=== PATIENT | female | born 1965 | race Caucasian/White ===

== ENCOUNTER 2021-03-21 15:52 | Inpatient (IN) | payer OTHER ==
[2021-03-21] MEDS ORDERED: SODIUM CHLORIDE 0.9% 1,000 ML IV STA (16:21)
[2021-03-21] MEDS ORDERED: LORazepam 2 MG/ML INJ IV PRN (16:25)
[2021-03-21] MEDS ORDERED: THIAMINE 100 MG/ML 2 ML VIAL IM STA (16:25)
--- NOTE | 2021-03-21 16:28 | ED ---
Alcohol HPI - General Chief Complaint: Alcohol Stated Complaint: ETOH Time Seen by Provider: 03/21/21 16:13 Source: patient Mode of arrival: ambulatory Limitations: no limitations - History of Present Illness Initial Comments: 55-year-old female presents to the emergency departments chief complaint of alcohol intoxication. Patient reports recently she moved to the area from [place]. History of alcohol abuse and alcohol withdrawal seizures. States she typically drinks 1.5 pints of alcohol daily. States her most recent drink was several hours ago and it was vodka. States that she is planning to go to [facility] but they would not allow her until she is sober and stops going through withdrawal. Patient states that she needs help with her withdrawals before she can go to rehab. She denies any homicidal, suicidal thoughts or ideations. No other complaints. - Related Data Allergies Allergy/AdvReac Type Severity Reaction Status Date / Time Fish Containing Products Allergy Unknown Verified 03/21/21 16:10 Review of Systems ROS Statement: Those systems with pertinent positive or pertinent negative responses have been documented in the HPI. ROS Other: All systems not noted in ROS Statement are negative. Past Medical History Past Medical History: Hypertension Additional Past Medical History / Comment(s): scoliosis History of Any Multi-Drug Resistant Organisms: None Reported Past Surgical History: No Surgical Hx Reported Past Psychological History: Anxiety, Depression, PTSD Smoking Status: Former smoker, Never smoker Past Alcohol Use History: Abuse, Daily, Heavy Past Drug Use History: Marijuana General Exam Limitations: no limitations General appearance: alert, in no apparent distress, appears intoxicated, anxious Head exam: Present: atraumatic, normocephalic, normal inspection Eye exam: Present: normal appearance, PERRL, EOMI Pupils: Present: normal accommodation ENT exam: Present: normal exam, normal oropharynx, mucous membranes moist Neck exam: Present: normal inspection, full ROM. Absent: tenderness, lymphadenopathy Respiratory exam: Present: normal lung sounds bilaterally. Absent: respiratory distress Cardiovascular Exam: Present: regular rate, normal rhythm, normal heart sounds. Absent: systolic murmur Extremities exam: Present: normal inspection, full ROM, normal capillary refill. Absent: tenderness, pedal edema Back exam: Present: normal inspection, full ROM. Absent: tenderness Neurological exam: Present: alert, oriented X3 Psychiatric exam: Present: normal affect, normal mood, anxious Skin exam: Present: warm, dry, intact, normal color Course Vital Signs 03/21/21 03/21/21 16:06 17:01 Temperature 98.6 F Pulse Rate 107 H 90 Respiratory 16 16 Rate Blood Pressure 137/85 124/76 O2 Sat by Pulse 94 L 92 L Oximetry Medical Decision Making - Medical Decision Making 55-year-old female presents to the emergency departments chief complaint of alcohol intoxication. On physical examination, patient is intoxicated and very emotional when talking. CBC is unremarkable. CMP reveals mild transaminitis. Lipase 1000. Also blood alcohol is 300. Patient will stay for alcohol intoxic ation and pancreatitis. Nothing by mouth. Analgesics. She does have history of withdrawal seizures. shaka hoskins. Given protocol. Case discussed with Cait, and JODI who will admit for Dr. Randolph. Case discussed with Dr. Walker. - Lab Data Result diagrams: 03/21/21 16:31 03/21/21 16:31 Lab Results 03/21/21 03/21/21 Range/Units 16:31 16:31 WBC 4.9 (3.8-10.6) k/uL RBC 3.97 (3.80-5.40) m/uL Hgb 13.3 (11.4-16.0) gm/dL Hct 39.8 (34.0-46.0) % MCV 100.2 H (80.0-100.0) fL MCH 33.4 (25.0-35.0) pg MCHC 33.4 (31.0-37.0) g/dL RDW 12.2 (11.5-15.5) % Plt Count 180 (150-450) k/uL MPV 8.4 Neutrophils % 54 % Lymphocytes % 36 % Monocytes % 6 % Eosinophils % 2 % Basophils % 1 % Neutrophils # 2.6 (1.3-7.7) k/uL Lymphocytes # 1.8 (1.0-4.8) k/uL Monocytes # 0.3 (0-1.0) k/uL Eosinophils # 0.1 (0-0.7) k/uL Basophils # 0.0 (0-0.2) k/uL Sodium 140 (137-145) mmol/L Potassium 4.1 (3.5-5.1) mmol/L Chloride 102 (98-107) mmol/L Carbon Dioxide 20 L (22-30) mmol/L Anion Gap 18 mmol/L BUN 10 (7-17) mg/dL Creatinine 0.66 (0.52-1.04) mg/dL Est GFR (CKD-EPI)AfAm >90 (>60 ml/min/1.73 sqM) Est GFR (CKD-EPI)NonAf >90 (>60 ml/min/1.73 sqM) Glucose 102 H (74-99) mg/dL Calcium 9.3 (8.4-10.2) mg/dL Magnesium 2.0 (1.6-2.3) mg/dL Total Bilirubin 0.5 (0.2-1.3) mg/dL AST 50 H (14-36) U/L ALT 18 (4-34) U/L Alkaline Phosphatase 115 (38-126) U/L Total Protein 7.5 (6.3-8.2) g/dL Albumin 4.7 (3.5-5.0) g/dL Lipase 1018 H (23-300) U/L Serum Alcohol 364 H* mg/dL - EKG Data EKG Comments: Sinus rhythm A chloride 99, WA 136, QRS 82, QTC 459. Disposition Clinical Impression: Alcoholic intoxication, Pancreatitis Disposition: ADMITTED IP TO THIS HOSP Condition: Fair Is patient prescribed a controlled substance at d/c from ED?: No Referrals: Nonstaff,Physician [Primary Care Provider] - 1-2 days Time of Disposition: 17:51
[2021-03-21] MEDS: THIAMINE 100 MG TAB PO SCH (16:57)
[2021-03-21 17:03] LABS: Basophils % (A) 1 %; Eosinophils # (A) 0.1 k/uL (0-0.7); Eosinophils % (A) 2 %; HCT 39.8 % (34.0-46.0); HGB 13.3 gm/dL (11.4-16.0); Lymphocytes # (A) 1.8 k/uL (1.0-4.8); Lymphocytes % (A) 36 %; MCH 33.4 pg (25.0-35.0); MCHC 33.4 g/dL (31.0-37.0); MCV 100.2 fL (80.0-100.0); Mean Platelet Volume 8.4; Monocytes # (A) 0.3 k/uL (0-1.0); Monocytes % (A) 6 %; Neutrophils # (A) 2.6 k/uL (1.3-7.7); Neutrophils % (A) 54 %; Platelet Count 180 k/uL (150-450); RBC 3.97 m/uL (3.80-5.40); RDW 12.2 % (11.5-15.5); WBC 4.9 k/uL (3.8-10.6)
[2021-03-21 17:11] LABS: ALT 18 U/L (4-34); AST 50 U/L (14-36); African American GFR (CKD) >90 (>60 ml/min/1.73 sqM); Albumin 4.7 g/dL (3.5-5.0); Alkaline Phosphatase 115 U/L (38-126); Anion Gap 18 mmol/L; Blood Urea Nitrogen 10 mg/dL (7-17); Calcium 9.3 mg/dL (8.4-10.2); Carbon Dioxide 20 mmol/L (22-30); Chloride 102 mmol/L (98-107); Glucose 102 mg/dL (74-99); Lipase 1018 U/L (23-300); Non-African American GFR(CKD) >90 (>60 ml/min/1.73 sqM); Potassium 4.1 mmol/L (3.5-5.1); Sodium 140 mmol/L (137-145); Total Bilirubin 0.5 mg/dL (0.2-1.3); Total Protein 7.5 g/dL (6.3-8.2)
[2021-03-21] MEDS ORDERED: NALOXONE 0.4 MG/ML 1 ML VIAL IV PRN (17:52)
[2021-03-21] MEDS: SODIUM CHLORIDE 0.9% 1,000 ML IV SCH (18:38)
[2021-03-21] MEDS: LORazepam 2 MG/ML INJ IV PRN (21:25)
[2021-03-22] MEDS: LORazepam 2 MG/ML INJ IV PRN ×4 (07:14→12:36)
[2021-03-22] MEDS: SODIUM CHLORIDE 0.9% 1,000 ML IV SCH (07:18)
[2021-03-22] MEDS: THIAMINE 100 MG TAB PO SCH ×2 (08:19→17:05)
[2021-03-22 08:31] LABS: Alcohol 364 mg/dL
[2021-03-22] MEDS ORDERED: GABAPENTIN 400 MG CAP PO PRN ×2 (10:10)
[2021-03-22] MEDS ORDERED: lamoTRIgine 25 MG TAB PO SCH (10:15)
[2021-03-22] MEDS ORDERED: chlordiazePOXIDE 25 MG CAP PO SCH (11:30)
--- NOTE | 2021-03-22 12:08 | P.HPIM ---
History of Present Illness Patient is a pleasant 55-year-old the female was sent in from a alcohol rehabilitation program for nonevent of alcohol withdrawal. Patient was drinking on for last afternoon wanted to quit alcohol. Patient last drink was yesterday patient drinks about one and half pint of alcohol every single day. Patient is having withdrawals with CA to be a score of 16 and patient received quite a bit of Ativan today. Patient denied any abdominal pain was having some nausea vomiting patient has mildly elevated lipase of thousand because of which patient was related to her pancreatitis although patient doesn't have any symptoms of hepatitis at this time. REVIEW OF SYSTEMS: CONSTITUTIONAL: No fever, no malaise, no fatigue. HEENT: No recent visual problems or hearing problems. Denied any sore throat. CARDIOVASCULAR: No chest pain, orthopnea, PND, no palpitations, no syncope. PULMONARY: No shortness of breath, no cough, no hemoptysis. GASTROINTESTINAL: No diarrhea, no abdominal pain. NEUROLOGICAL: No headaches, no weakness, no numbness. HEMATOLOGICAL: Denies any bleeding or petechiae. GENITOURINARY: Denies any burning micturition, frequency, or urgency. MUSCULOSKELETAL/RHEUMATOLOGICAL: Denies any joint pain, swelling, or any muscle pain. ENDOCRINE: Denies any polyuria or polydipsia. The rest of the 14-point review of systems is negative. PHYSICAL EXAMINATION: GENERAL: The patient is alert and oriented x3, not in any acute distress. Well developed, well nourished. HEENT: Pupils are round and equally reacting to light. EOMI. No scleral icterus. No conjunctival pallor. Normocephalic, atraumatic. No pharyngeal erythema. No thyromegaly. CARDIOVASCULAR: S1 and S2 present. No murmurs, rubs, or gallops. PULMONARY: Chest is clear to auscultation, no wheezing or crackles. ABDOMEN: Soft, nontender, nondistended, normoactive bowel sounds. No palpable organomegaly. MUSCULOSKELETAL: No joint swelling or deformity. EXTREMITIES: No cyanosis, clubbing, or pedal edema. NEUROLOGICAL: Gross neurological examination did not reveal any focal deficits. SKIN: No rashes. Assessment and plan -Alcohol withdrawal: Patient is expected to have worsening withdrawals later today because of which patient the need continued hospitalization and monitoring continue with the Ativan CIWA protocol, thiamine multivitamin supplementation and IV fluids as needed -Elevated lipase no clinical evidence of pancreatitis patient will be started on liquid diet and advance as tolerated -Nausea vomiting secondary to alcoholic gastritis continue with Protonix -Alcohol abuse -Peripheral neuropathy probably secondary to chronic alcoholism continue with gabapentin on as-needed basis -Depression: Patient is on bupropion patient is on 300 mg of bupropion total with concerns of alcohol withdrawal and uses seizures I'll hold off on bupropion at this time it may not be effective anyway considering her chronic alcoholism. DVT prophylaxis: Lovenox Past Medical History Past Medical History: Hypertension Additional Past Medical History / Comment(s): scoliosis History of Any Multi-Drug Resistant Organisms: None Reported Past Surgical History: No Surgical Hx Reported Past Anesthesia/Blood Transfusion Reactions: No Reported Reaction Past Psychological History: Anxiety, Depression, PTSD Smoking Status: Never smoker Past Alcohol Use History: Abuse, Daily, Heavy Past Drug Use History: Marijuana Medications and Allergies Home Medications Medication Instructions Recorded Confirmed Type Baclofen [Lioresal] 10 mg PO BID PRN 03/21/21 03/21/21 History Folic Acid 1 mg PO DAILY 03/21/21 03/21/21 History Gabapentin [Neurontin] 400 mg PO BID@0800,1200 03/21/21 03/21/21 History Gabapentin [Neurontin] 800 mg PO HS 03/21/21 03/21/21 History Naproxen 500 mg PO Q12H PRN 03/21/21 03/21/21 History Omeprazole 20 mg PO W/SUPPER 03/21/21 03/21/21 History Thiamine [Vitamin B-1] 100 mg PO DAILY 03/21/21 03/21/21 History buPROPion HCL [Wellbutrin SR] 150 mg PO Q12H 03/21/21 03/21/21 History lamoTRIgine [LaMICtal] 25 mg PO BID 03/21/21 03/21/21 History traZODone HCL 150 mg PO HS 03/21/21 03/21/21 History Allergies Allergy/AdvReac Type Severity Reaction Status Date / Time Fish Containing Products Allergy Unknown Verified 03/21/21 18:30 Physical Exam Vitals: Vital Signs Temp Pulse Pulse Resp BP BP Pulse Ox 03/22/21 08:00 17 03/22/21 07:48 99.1 F 80 17 158/97 100 03/22/21 00:10 97.7 F 102 H 14 120/77 96 03/22/21 00:01 98 03/21/21 22:00 88 L 03/21/21 21:00 84 16 107/59 96 03/21/21 18:24 84 16 107/60 95 03/21/21 17:01 90 16 124/76 92 L 03/21/21 16:06 98.6 F 107 H 16 137/85 94 L Intake and Output 03/21/21 03/22/21 03/22/21 22:59 06:59 14:59 Intake Total 600 Balance 600 Intake: Intake, IV Titration 600 Amount Sodium Chloride 0.9% 1, 600 000 ml @ 75 mls/hr IV . [id number] PASCUAL Rx#:[id number] Oral 0 Other: # Voids 1 1 Weight 61.235 kg 61.235 kg Results CBC & Chem 7: 03/21/21 16:31 03/21/21 16:31 Labs: Abnormal Lab Results - Last 24 Hours (Table) 03/21/21 03/21/21 Range/Units 16:31 16:31 MCV 100.2 H (80.0-100.0) fL Carbon Dioxide 20 L (22-30) mmol/L Glucose 102 H (74-99) mg/dL AST 50 H (14-36) U/L Lipase 1018 H (23-300) U/L Serum Alcohol 364 H* mg/dL Thrombosis Risk Factor Assmnt - Choose All That Apply Each Factor Represents 1 point: Age 41-60 years Other Risk Factors: No Other congenital or acquired thrombophilia - If yes, enter type in comment: No Thrombosis Risk Factor Assessment Total Risk Factor Score: 1 Thrombosis Risk Factor Assessment Level: Low Risk
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
--- NOTE | 2021-03-22 16:50 | P.DS ---
Providers Date of admission: 03/21/21 18:57 Attending physician: Adrianne Randolph Consults: 03/21/21 17:52 Consult Physician Routine Consulting Provider: Ernesto Acevedo Reason/Comments: alcohol Intoxication, alcohol abuse Do you want consulting provider notified?: Already Contacted Primary care physician: Physician Nonstaff Hospital Course: Patient was accepted by Dr. Hightower to be transferred to [facility] as patient's insurance doesn't cover [facility]. Please refer to HPI for further details patient will be transferred to medical surgical floor, Wellbutrin is being discontinued patient is on 150 twice a day of Wellbutrin testing that patient is having withdrawals concern for decreased seizure threshold this medication is being discontinued at this time. Patient Condition at Discharge: Fair Plan - Discharge Summary Discharge Rx Participant: No New Discharge Prescriptions: Discontinued buPROPion HCL [Wellbutrin SR] 150 mg PO Q12H No Action traZODone HCL 150 mg PO HS Gabapentin [Neurontin] 800 mg PO HS Gabapentin [Neurontin] 400 mg PO BID@0800,1200 Folic Acid 1 mg PO DAILY lamoTRIgine [LaMICtal] 25 mg PO BID Thiamine [Vitamin B-1] 100 mg PO DAILY Omeprazole 20 mg PO W/SUPPER Naproxen 500 mg PO Q12H PRN PRN Reason: Pain Baclofen [Lioresal] 10 mg PO BID PRN PRN Reason: Pain Discharge Medication List Baclofen [Lioresal] 10 mg PO BID PRN 03/21/21 [History] Folic Acid 1 mg PO DAILY 03/21/21 [History] Gabapentin [Neurontin] 400 mg PO BID@0800,1200 03/21/21 [History] Gabapentin [Neurontin] 800 mg PO HS 03/21/21 [History] Naproxen 500 mg PO Q12H PRN 03/21/21 [History] Omeprazole 20 mg PO W/SUPPER 03/21/21 [History] Thiamine [Vitamin B-1] 100 mg PO DAILY 03/21/21 [History] lamoTRIgine [LaMICtal] 25 mg PO BID 03/21/21 [History] traZODone HCL 150 mg PO HS 03/21/21 [History] Follow up Appointment(s)/Referral(s): Nonstaff,Physician [Primary Care Provider] - 1-2 days Discharge Disposition: OTHER INSTITUTION NOT DEFINED
[2021-03-22] MEDS ORDERED: PANTOPRAZOLE 40 MG TABLET PO SCH (17:30)
[2021-03-22 19:24] VITALS: BP 147/94; PULSE 88; RESP 18; TEMP 99.2
[2021-03-22] MEDS ORDERED: ESCITALOPRAM 5 MG TAB PO SCH (21:00)
[2021-03-22] MEDS ORDERED: traZODone HCL 100 MG TAB PO SCH (21:00)
[2021-03-23] MEDS ORDERED: FOLIC ACID 1 MG TAB PO SCH (09:00)
--- NOTE | 2021-03-24 09:10 | CDI ---
Documentation Clarification Form Date: 03/24/2021 09:02:32 AM From: Porter Gray Admit Date: 03/21/2021 06:57:00 PM Patient Name: Catia Hernandez Visit Number: [id number] Discharge Date: 03/22/2021 07:37:00 PM ATTENTION: The Clinical Documentation Specialists (CDI) and [facility] Coding Staff appreciate your assistance in clarifying documentation. Please respond to the clarification below the line at the bottom and electronically sign. The CDI & [facility] Coding staff will review the response and follow-up if needed. Please note: Queries are made part of the Legal Health Record. If you have any questions, please contact the author of this message via ITS. Dr. Adrianne Randolph Conflicting documentation has been found in the medical record. As attending physician, please provide clarification. ED notes indicate pancreatitis H+P indicates elevated lipase with no evidence of pancreatitis Discharge summary does not address pancreatitis History/Risk Factors: hx of alcoholic pancreatitis Clinical Indicators: elevated lipase Treatment: N/A Please clarify which diagnosis is most appropriate: [ ] acute pancreatitis [ ] chronic pancreatitis [ ] acute on chronic pancreatitis [ ] Other (please specify) [ ] Unable to determine [ ] pancreatitis ruled out. Elevated lipase only. MTDD
== END 2021-03-22 19:37 | disposition other institution (70) | DRG 897 ==
LOC: EC 15:52 → 4SSUR 18:57
PROVIDERS: ADMIT Hospitalist; ATTEND Hospitalist
DX: F10.139 Alcohol abuse with withdrawal, unspecified (principal); F10.129 Alcohol abuse with intoxication, unspecified; I10 Essential (primary) hypertension; M41.9 Scoliosis, unspecified; F43.10 Post-traumatic stress disorder, unspecified; Z87.891 Personal history of nicotine dependence; Y90.8 Blood alcohol level of 240 mg/100 ml or more; G62.1 Alcoholic polyneuropathy; K29.20 Alcoholic gastritis without bleeding; Z79.899 Other long term (current) drug therapy; F32.9 Major depressive disorder, single episode, unspecified
CPT/HCPCS: 36415; 80053; 80320; 82075; 83690; 83735; 85025; 93005; 96360; 96361; 96372; 96374; 99285